=== PATIENT | female | born 2005 | race Hispanic/Latino ===

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

== ENCOUNTER 2024-02-15 14:20 | Observation (INO) | payer OTHER ==
[~2024-02-15] VITALS: Ht 170.2 cm; Wt 70.3 kg
[2024-02-15 15:59] LABS: BASOPHILS % 0.3 % (0.0-1.0); EOSINOPHILS # (AUTO) 0.2 (0.0-0.4); EOSINOPHILS % 1.9 % (0.0-6.0); LYMPHOCYTES # (AUTO) 2.7 (1.0-3.2); LYMPHOCYTES % 22.7 % (18.0-39.1); MEAN CORPUSCULAR HEMOGLOBIN 18.6 pg (28-32); MEAN CORPUSCULAR HGB CONC 28.2 g/dL (31-35); MEAN CORPUSCULAR VOLUME 65.9 fL (81-99); MONOCYTES # (AUTO) 0.8 (0.2-0.8); MONOCYTES % 6.6 % (4.4-11.3); PLATELET COUNT 716 x10e3/uL (140-360); RED BLOOD COUNT 3.23 x10e6/uL (3.6-5.1); RED CELL DISTRIBUTION WIDTH 16.5 % (11.7-14.4)
[2024-02-15 16:05] LABS: HEMATOCRIT 21.3 % (34.2-44.1)
[2024-02-15 16:12] LABS: CLARITY,URINE SL CLOUDY (CLEAR); COLOR,URINE YELLOW (YELLOW); LEUKOCYTE ESTERASE ,URINE SMALL (NEGATIVE); NITRITE,URINE NEGATIVE (NEGATIVE); PH,URINE 7 (5 - 7); PROTEIN,URINE DIPSTICK 1+ (NEGATIVE)
[2024-02-15 16:13] LABS: BILIRUBIN,URINE NEGATIVE (NEGATIVE); GLUCOSE, URINE NEGATIVE (NEGATIVE); KETONES,URINE TRACE (NEGATIVE); URINE UROBILINOGEN 0.2 mg/dL (0.2 - 1)
[2024-02-15] MEDS: Morphine 4mg INJECTION 4 MG/ML INJ IV STA (16:14)
[2024-02-15] MEDS: SODIUM CHLORIDE 0.9% 1000ML 1,000 ML IV STA ×2 (16:14→16:15)
[2024-02-15] MEDS: ONDANSETRON HCL INJ 2MG/ML 2ML 2 MG/ML VIAL IV STA (16:15)
[2024-02-15] MEDS: METHYLPREDNISOLONE SOD SUCC 125 MG/2ML VIAL IV STA (16:15)
[2024-02-15 16:16] LABS: INR 1.05; PROTHROMBIN TIME 14.3 seconds (11.9-14.5)
[2024-02-15 16:16] LABS: BACTERIA,URINE FEW /HPF; EPITHELIAL CELLS,URINE MANY /LPF; RBC,URINE 0-5 /HPF (0-5)
[2024-02-15 16:17] LABS: PARTIAL THROMBOPLASTIN TIME 28.1 seconds (23.8-35.5)
[2024-02-15 16:27] LABS: ALANINE AMINOTRANSFERASE 9 IU/L (0-55); ALBUMIN 2.5 g/dL (3.5-5.0); ALBUMIN/GLOBULIN RATIO 0.6 (0.8-2.0); ALKALINE PHOSPHATASE 62 IU/L (40-150); ANION GAP 15.4 mmol/L (8-16); BILIRUBIN,TOTAL 0.5 mg/dL (0.2-1.2); BLOOD UREA NITROGEN 5 mg/dL (7-26); BUN/CREATININE RATIO 7 (6-25); CALCIUM 8.5 mg/dL (8.4-10.2); CARBON DIOXIDE 21 mmol/L (22-29); CHLORIDE 104 mmol/L (98-107); EST GLOMERULAR FILTRATION RATE 127 ML/MIN (>=60); GLUCOSE 86 mg/dL (74-118); LIPASE 19 U/L (8-78); MAGNESIUM 2.2 MG/DL (1.3-2.1); SODIUM 137 mmol/L (136-145); TOTAL PROTEIN 6.9 g/dL (6.5-8.1)
[2024-02-15 16:34] LABS: POTASSIUM 3.4 mmol/L (3.5-5.1)
[2024-02-15] MEDS ORDERED: IOPAMIDOL 370 MG/ML 100 ML INFUS..BTL INJ ONE (16:35)
[2024-02-15] MEDS ORDERED: ONDANSETRON HCL INJ 2MG/ML 2ML 2 MG/ML VIAL IV PRN (17:00)
[2024-02-15 17:36] VITALS: PULSE 91; RESP 16; TEMP 99
[2024-02-15] MEDS: SODIUM CHLORIDE 0.9% 250ML 250 ML IV ONE (17:36)
[2024-02-15 18:20] VITALS: BP 117/70; PULSE 89; RESP 18; TEMP 98.4; O2SAT 98
[2024-02-15 20:52] VITALS: BP 113/67; PULSE 92; RESP 16; TEMP 98; O2SAT 100
[2024-02-15 21:28] VITALS: BP 113/67; PULSE 92; RESP 16; TEMP 98; O2SAT 100
[2024-02-15 21:33] LABS: % IRON SATURATION 6 % (15-50); IRON 18 ug/dL (50-170); TOTAL IRON BINDING CAPACITY 319 ug/dL (261-478); TRANSFERRIN 228 mg/dL (180-382)
[2024-02-15] MEDS: MESALAMINE 400 MG CAP PO STA (22:42)
[2024-02-15] MEDS: DICYCLOMINE HCL 20 MG TAB PO STA (22:43)
[2024-02-15 23:59] VITALS: BP 114/65; PULSE 66; RESP 16; TEMP 97.2; O2SAT 100
[2024-02-16] VITALS (7 sets, daily range): BP systolic 110–125; BP diastolic 63–78; PULSE 61–81; RESP 16–18; TEMP 97.7–98.7; O2SAT 100
[2024-02-16] MEDS: SODIUM CHLORIDE 0.9% 1000ML 1,000 ML IV SCH (01:00)
[2024-02-16] MEDS: Morphine 2mg Syringe 2 MG/ML SYR IV PRN (05:41)
[2024-02-16 07:43] LABS: WBC,FECAL (FECAL LACTOFERRIN) POSITIVE (NEGATIVE)
[2024-02-16 07:52] LABS: CDIFF AG QUIK CHEK NEGATIVE (NEGATIVE); CDIFF TOX QUIK CHEK NEGATIVE (NEGATIVE)
[2024-02-16] MEDS: IRON SUCROSE 100 MG in SODIUM CHLORIDE 0.9% 100 ML IV SCH (08:49)
[2024-02-16] MEDS: MESALAMINE 400 MG CAP PO SCH (08:49)
[2024-02-16] MEDS: DICYCLOMINE HCL 20 MG TAB PO SCH (08:49)
[2024-02-16 09:11] LABS: BASOPHILS # (AUTO) 0.1 (0.0-0.1); BASOPHILS % 0.5 % (0.0-1.0); EOSINOPHILS % 0.1 % (0.0-6.0); HEMATOCRIT 35.5 % (34.2-44.1); HEMOGLOBIN 10.3 g/dL (12.0-16.0); LYMPHOCYTES # (AUTO) 2.9 (1.0-3.2); LYMPHOCYTES % 21.4 % (18.0-39.1); MEAN CORPUSCULAR HEMOGLOBIN 22.9 pg (28-32); MEAN CORPUSCULAR VOLUME 79.1 fL (81-99); MONOCYTES # (AUTO) 1.4 (0.2-0.8); MONOCYTES % 10.2 % (4.4-11.3); NEUTROPHILS # (AUTO) 8.9 (2.1-6.9); NEUTROPHILS % 65.9 % (38.7-80.0); PLATELET COUNT 573 x10e3/uL (140-360); RED BLOOD COUNT 4.49 x10e6/uL (3.6-5.1); RED CELL DISTRIBUTION WIDTH 20.6 % (11.7-14.4); WHITE BLOOD COUNT 13.47 x10e3/uL (4.8-10.8)
[2024-02-16 09:55] LABS: ALBUMIN 2.4 g/dL (3.5-5.0); ALBUMIN/GLOBULIN RATIO 0.6 (0.8-2.0); ANION GAP 13.9 mmol/L (8-16); BILIRUBIN,TOTAL 1.1 mg/dL (0.2-1.2); CALCIUM 8.5 mg/dL (8.4-10.2); CREATININE, SERUM 0.66 mg/dL (0.57-1.11); POTASSIUM 3.9 mmol/L (3.5-5.1); TOTAL PROTEIN 6.5 g/dL (6.5-8.1)
[2024-02-16 11:17] LABS: LYMPHOCYTES % (MANUAL) 23 % (19-48); MONOCYTES % (MANUAL) 6 % (3.4-9.0); NEUTROPHILS % (MANUAL) 71 % (40-74); NUCLEATED RED BLOOD CELLS 1
[2024-02-16 11:25] LABS: ANISOCYTOSIS MODERATE; HYPOCHROMASIA MODERATE; MICROCYTOSIS MODERATE; PLATELET ESTIMATE ADEQUATE; PLATELET MORPHOLOGY COMMENT NORMAL; POLYCHROMASIA FEW
[2024-02-16] MEDS ORDERED: ACETAMINOPHEN 325 MG TAB PO PRN (12:00)
[2024-02-16] MEDS ORDERED: HYDRALAZINE HCL 20 MG/ML VIAL IV PRN (12:00)
[2024-02-16] MEDS: LEVOFLOXACIN 500 MG TAB PO SCH (15:29)
[2024-02-16] MEDS: LACTOBACILLUS ACIDOPHILUS CAPSULE PO SCH (15:29)
[2024-02-16] MEDS: METRONIDAZOLE 500 MG TAB PO SCH (15:29)
[2024-02-17] VITALS: BP 112/78; PULSE 78; RESP 18; TEMP 99.1; O2SAT 97
[2024-02-17 04:00] VITALS: BP 120/72; PULSE 73; RESP 18; TEMP 98.3; O2SAT 100
[2024-02-17 05:28] LABS: BASOPHILS # (AUTO) 0.1 (0.0-0.1); BASOPHILS % 0.5 % (0.0-1.0); EOSINOPHILS # (AUTO) 0.1 (0.0-0.4); EOSINOPHILS % 0.7 % (0.0-6.0); HEMOGLOBIN 9.6 g/dL (12.0-16.0); LYMPHOCYTES # (AUTO) 1.9 (1.0-3.2); MEAN CORPUSCULAR VOLUME 74.3 fL (81-99); MONOCYTES # (AUTO) 0.9 (0.2-0.8); MONOCYTES % 8.5 % (4.4-11.3); NEUTROPHILS % 68.9 % (38.7-80.0); PLATELET COUNT 496 x10e3/uL (140-360); RED BLOOD COUNT 4.17 x10e6/uL (3.6-5.1); RED CELL DISTRIBUTION WIDTH 21.5 % (11.7-14.4); WHITE BLOOD COUNT 10.11 x10e3/uL (4.8-10.8)
[2024-02-17 06:08] LABS: ALANINE AMINOTRANSFERASE 9 IU/L (0-55); ALBUMIN 1.9 g/dL (3.5-5.0); ALBUMIN/GLOBULIN RATIO 0.6 (0.8-2.0); ALKALINE PHOSPHATASE 46 IU/L (40-150); ANION GAP 11.4 mmol/L (8-16); BILIRUBIN,TOTAL 0.6 mg/dL (0.2-1.2); BLOOD UREA NITROGEN < 5 mg/dL (7-26); CALCIUM 7.9 mg/dL (8.4-10.2); CARBON DIOXIDE 17 mmol/L (22-29); CHLORIDE 111 mmol/L (98-107); CREATININE, SERUM 0.63 mg/dL (0.57-1.11); EST GLOMERULAR FILTRATION RATE 130 ML/MIN (>=60); GLUCOSE 82 mg/dL (74-118); SODIUM 136 mmol/L (136-145); TOTAL PROTEIN 5.2 g/dL (6.5-8.1)
[2024-02-17 06:10] LABS: BUN/CREATININE RATIO 8 (6-25); POTASSIUM 3.4 mmol/L (3.5-5.1)
[2024-02-17 07:56] VITALS: BP 114/70; PULSE 77; RESP 18; TEMP 98.8; O2SAT 100
[2024-02-17] MEDS ORDERED: METRONIDAZOLE500 MG PO (11:15)
[2024-02-17] MEDS ORDERED: DICYCLOMINE HCL20 MG PO (11:15)
[2024-02-17] MEDS ORDERED: MESALAMINE DR400 MG PO (11:15)
[2024-02-17] MEDS ORDERED: LEVOFLOXACIN250 MG PO (11:17)
[2024-02-17] MEDS ORDERED: ONDANSETRON HCL 4 MG ORAL DISINTEGRATING TAB PO PRN (11:45)
== END 2024-02-17 12:55 | disposition home or self-care (01) ==
LOC: ER 15:13 → ERHOLD 17:03 → MED/SURG2 18:17
PROVIDERS: ADMIT Internal Medicine; ATTEND Internal Medicine
DX: D62 Acute posthemorrhagic anemia (principal); K51.911 Ulcerative colitis, unspecified with rectal bleeding; K76.9 Liver disease, unspecified; T38.0X5A Adverse effect of glucocorticoids and synthetic analogues, initial encounter; T36.95XA Adverse effect of unspecified systemic antibiotic, initial encounter; Y92.009 Unspecified place in unspecified non-institutional (private) residence as the place of occurrence of the external cause; Z91.148 Patient's other noncompliance with medication regimen for other reason; Z98.818 Other dental procedure status; Z79.899 Other long term (current) drug therapy
CPT/HCPCS: 36415 ×3; 74174; 80053 ×3; 81001; 82607; 82948; 83540; 83630; 83690; 83735; 83993; 84466; 84702; 85025 ×3; 85045; 85610; 85730; 86140; 86850; 86900; 86920; 87045; 87086; 87177; 87324; 87449; 99284; G0378 ×3; J1756 ×2; J2270 ×3; J2405; J2470; J2919; J7030 ×3; J7050 ×3; P9016 ×2; Q9967